=== PATIENT | male | born 2000 ===

== ENCOUNTER 2023-11-03 15:34 | Outpatient (CLI) | payer OTHER, SELFPAY ==
[2023-11-03 23:40] LABS: Chlamydia DNA Amplified* NOT DETECTED (No Detected); GC DNA Amplified* NOT DETECTED (No Detected)
== END 2023-11-03 15:35 | disposition home or self-care (01) ==
LOC: NFLDUCREF 15:35
PROVIDERS: PCP Nurse Practitioner Family; Visit Provider Nurse Practitioner Family
DX: R30.0 Dysuria (principal); Z11.3 Encounter for screening for infections with a predominantly sexual mode of transmission
CPT/HCPCS: 87491; 87591

== ENCOUNTER 2023-11-10 15:57 | Outpatient (CLI) | payer OTHER, SELFPAY | END 2023-11-10 15:58 | disposition home or self-care (01) | LOC: NFLDUCREF 16:02 | PROVIDERS: Visit Provider Nurse Practitioner Family | DX: R68.89 Other general symptoms and signs (principal); R09.A2 Foreign body sensation, throat | CPT/HCPCS: 87070 ==